=== PATIENT | male | born 1935 | race Caucasian/White ===

== ENCOUNTER → 2016-11-05 | Outpatient (CLI) | payer OTHER, MEDICARE ==
[~2016-11-05] MED LIST: ADULT LOW DOSE81 MG; LIPITOR; ZIAC
--- NOTE | ~2016-11-05 | CNG ---
[facility] [place] [address] CYTO-NONGYN REPORT PROCEDURE Name: JENN GARSIA Room #: REG Owen MGerardo.#: [id number] Admission: 11/05/16 Date of : 33 Discharge: Report #: [id number] Path Case #: [id number] CYTOPATHOLOGY REPORT COLLECTION DATE: 11/05/2016 RECEIVED DATE: 11/05/2016 SUBMITTING PHYS: Dr. Jamar Mendoza OTHER PHYS: Dr. Yuan Grimes CLINICAL HISTORY: Effusion. SPECIMEN(S) RECEIVED: A.Pleural fluid * * * * * * * * * * * * FINAL DIAGNOSIS: A. Pleural fluid: - No malignant cells identified. Paucicellular specimen consisting of rare mixed inflammatory cells and proteinaceous debris. PATHOLOGIST: Alicia Nolen M.D. REPORT ELECTRONICALLY SIGNED BY: Alicia Nolen M.D. DATE/TIME: 11/06/2016 15:01 * * * * * * * * * * * * GROSS PATHOLOGY: A. Pleural fluid: The specimen is submitted unfixed, labeled "Jenn Garsia". Received by the Cytology Department is five mL of yellow fluid. One ThinPrep slide was prepared. There was insufficient material to prepare a cell block. (clt 11.05.2016) APPOINTMENT SPECIALIST(S): MARIELA Desai(ASCP) INITIAL CPT CODE(S): A; 71718 Professional services performed by [facility] at [facility] [address], [place] [address] Technical services performed by [facility] at [address] [place] [address]., [address], [place] [address]. [facility] [address] [place] [address], [address] [place] [address] PHONE: [phone] [facility] [address] [address] CYTO-NONGYN REPORT PROCEDURE Name: JENN GARSIA Room #: REG CLOwen Zaidi.#: [id number] Admission: 11/05/16 Date of : 33 Discharge: Report #: [id number] Path Case #: [id number] DIRECTOR: Gagandeep Carrillo M.D. * * * END OF REPORT * * *
[2016-11-05 10:40] LABS: PROTIME 10.7 Seconds (9.3-11.4)
[2016-11-06 09:49] LABS: TOTAL VOLUME 20
[2016-11-11 11:07] LABS: COLOR YELLOW
[2016-11-11 11:08] LABS: BF RBC 1000; CLARITY CLEAR
[2016-11-11 11:11] LABS: BF LINING CELLS 4; BF NEUTROPHILS 3; BF NUCLEATED CELLS 388
[2016-11-11 11:12] LABS: BODY FLUID ALBUMIN 2.4; BODY FLUID PROTEIN 4.4
[2016-11-11 11:13] LABS: BODY FLUID AMYLASE 37; BODY FLUID GLUCOSE 87; BODY FLUID LDH 186
== END ==
LOC: ULTRA 09:19
PROVIDERS: Internal Medicine Pulmonary Disease
DX: J90 Pleural effusion, not elsewhere classified (principal)

== ENCOUNTER → 2016-11-08 | Outpatient (CLI) | payer OTHER, MEDICARE ==
--- NOTE | ~2016-11-08 | CNG ---
[facility] [place] [address] CYTO-NONGYN REPORT PROCEDURE Name: JENN GARSIA Bety Room #: REG [facility] Dejuan.#: [id number] Admission: 11/08/16 Date of : 33 Discharge: Report #: [id number] Path Case #: [id number] CYTOPATHOLOGY REPORT COLLECTION DATE: 11/08/2016 RECEIVED DATE: 11/08/2016 SUBMITTING PHYS: Dr. Jamar Mendoza OTHER PHYS: CLINICAL HISTORY: Decubitus views/US/Thoracentesis SPECIMEN(S) RECEIVED: A.Pleural fluid, right * * * * * * * * * * * * FINAL DIAGNOSIS: A. Right Pleural fluid: - No malignant epithelial cells identified. Scattered mesothelial cells and inflammatory cells identified. PATHOLOGIST: Toyin Juares M.D. REPORT ELECTRONICALLY SIGNED BY: Toyin Juares M.D. DATE/TIME: 11/11/2016 14:41 * * * * * * * * * * * * GROSS PATHOLOGY: A. Pleural fluid, right: The specimen is submitted unfixed, labeled "Jenn Garsia". Received by the Cytology Department is 20 mL of yellow fluid. One ThinPrep slide and a cell block were prepared. (kg 11/08/16) CALCINER FEEDER(S): [facility] Pinzon[facility] INITIAL CPT CODE(S): A; 97184, 69107 Professional services performed by [facility] at [facility] [address] [facility] , [place] [address] Technical services performed by [facility] at [address] [place] [address]., [address], [place] [address]. [facility] [address] [place] [address], [address] [place] [address] PHONE: [phone] [facility] [address] [place] [address] CYTO-NONGYN REPORT PROCEDURE Name: JENN GARSIA Room #: REG CLOwen Zaidi.#: [id number] Admission: 11/08/16 Date of : 33 Discharge: Report #: [id number] Path Case #: [id number] DIRECTOR: Gagandeep Carrillo M.D. * * * END OF REPORT * * *
[2016-11-08 14:42] LABS: TOTAL VOLUME 60
[2016-11-10 05:35] LABS: BODY FLUID ALBUMIN 2.5 g/dL (()); BODY FLUID AMYLASE 34 U/L (()); BODY FLUID GLUCOSE 81 mg/dL (()); BODY FLUID LDH 237 IU/L (()); BODY FLUID PROTEIN 4.4 g/dL (())
[2016-11-10 23:05] LABS: BF LINING CELLS 0 % (Not Estab.); BF MACROPHAGE 27 % (Not Estab.); BF NEUTROPHILS 0 % (0-24); BF NUCLEATED CELLS 568 /mm3 (0-499); BF RBC 3000 /uL (Not Estab.); CLARITY CLEAR (Clear); COLOR STRAW (())
== END | disposition home or self-care (01) ==
LOC: RAD 06:00
PROVIDERS: Internal Medicine Pulmonary Disease
DX: J90 Pleural effusion, not elsewhere classified (principal)

== ENCOUNTER → 2016-11-18 | Outpatient (CLI) | payer OTHER, MEDICARE | LOC: RAD 08:05 | DX: J90 Pleural effusion, not elsewhere classified (principal) ==

== ENCOUNTER → 2016-11-25 | Outpatient (CLI) | payer OTHER, MEDICARE ==
--- NOTE | ~2016-11-25 | CNG ---
[facility] [place] [address] CYTO-NONGYN REPORT PROCEDURE Name: JENN GARSIA Room #: REG BOY Zaidi.#: [id number] Admission: 11/25/16 Date of : 33 Discharge: Report #: [id number] Path Case #: [id number] CYTOPATHOLOGY REPORT COLLECTION DATE: 11/25/2016 RECEIVED DATE: 11/25/2016 SUBMITTING PHYS: Dr. Jamar Mendoza OTHER PHYS: Dr. Yuan Grimes CLINICAL HISTORY: Pleural effusion. SPECIMEN(S) RECEIVED: A.Pleural fluid, Left * * * * * * * * * * * * FINAL DIAGNOSIS: A. Left Pleural fluid: NEGATIVE FOR MALIGNANT EPITHELIAL CELLS. Scattered lymphocytes, rare mesothelial cells, and abundant proteinaceous debris. PATHOLOGIST: Toyin Juares M.D. REPORT ELECTRONICALLY SIGNED BY: Toyin Juares M.D. DATE/TIME: 11/26/2016 15:25 * * * * * * * * * * * * GROSS PATHOLOGY: A. Pleural fluid, Left: The specimen is submitted unfixed, labeled "ShannonJenn bañuelos". Received by the Cytology Department is 25 mL of earnest fluid. One ThinPrep slide and a cell block were prepared. (clt 11.25.2016) TRUCK ASSEMBLER(S): MARIELA Haynes([facility] INITIAL CPT CODE(S): A; 55899, 33389 Professional services performed by [facility] at [facility] , [place] [address] Technical services performed by [facility] at [address] [place] [address]., [address], [place] [address]. [facility] [address] [place] [address], [facility] [address] [place] [address] PHONE: [phone] [facility] [address] [place] [address] CYTO-NONGYN REPORT PROCEDURE Name: JENN GARSIA Room #: REG BOY Zaidi.#: [id number] Admission: 11/25/16 Date of : 33 Discharge: Report #: [id number] Path Case #: [id number] DIRECTOR: Gagandeep Carrillo M.D. * * * END OF REPORT * * *
[2016-11-25 07:31] LABS: HEMATOCRIT 42.7 % (42.0-52.0); HEMOGLOBIN 14.2 gm/dL (14.0-18.0); MCH 29.4 pg (26.0-34.0); MCHC 33.3 % (28.0-37.0); MCV 88.1 fL (80.0-100.0); RBC 4.85 mil/uL (4.50-6.00); RDW 16.1 % (10.5-14.5)
[2016-11-25 07:38] LABS: CALCIUM 8.6 mg/dL (8.5-10.1); CREATININE 1.1 mg/dL (0.6-1.3)
[2016-11-25 07:42] LABS: PROTIME 10.6 Seconds (9.3-11.4)
[2016-11-25 07:44] LABS: ALBUMIN 3.4 g/dL (3.4-5.0); TOTAL BILIRUBIN 0.6 mg/dL (<0.1-1.0)
[2016-11-25 09:45] LABS: TOTAL VOLUME 60
[2016-11-25 12:07] LABS: BODY FLUID ALBUMIN 2.4 g/dL (()); BODY FLUID AMYLASE 43 U/L (()); BODY FLUID GLUCOSE 83 mg/dL (()); BODY FLUID LDH 183 IU/L (()); BODY FLUID PROTEIN 4.6 g/dL (())
[2016-11-25 12:07] LABS: BF MACROPHAGE 5 % (Not Estab.); BF NEUTROPHILS 1 % (0-24); BF NUCLEATED CELLS 1072 /mm3 (0-499); BF RBC 4000 /uL (Not Estab.); CLARITY CLOUDY (Clear); COLOR YL (())
== END | disposition home or self-care (01) ==
LOC: ULTRA 06:59
PROVIDERS: Internal Medicine Pulmonary Disease
DX: J90 Pleural effusion, not elsewhere classified (principal)

== ENCOUNTER → 2020-04-07 | Outpatient (CLI) | payer OTHER, MEDICARE | LOC: SJCVCIMAG 08:54 | PROVIDERS: ATTEND Internal Medicine Cardiovascular Disease | DX: I08.3 Combined rheumatic disorders of mitral, aortic and tricuspid valves (principal); I11.9 Hypertensive heart disease without heart failure; R94.31 Abnormal electrocardiogram [ECG] [EKG]; I44.7 Left bundle-branch block, unspecified; I44.39 Other atrioventricular block; I48.92 Unspecified atrial flutter; I87.2 Venous insufficiency (chronic) (peripheral); D68.59 Other primary thrombophilia; E78.00 Pure hypercholesterolemia, unspecified; E55.9 Vitamin D deficiency, unspecified; Z79.899 Other long term (current) drug therapy; Z87.891 Personal history of nicotine dependence ==

== ENCOUNTER → 2020-05-31 | Outpatient (CLI) | payer OTHER, MEDICARE | LOC: SJCVC 11:34 | PROVIDERS: ATTEND Internal Medicine Cardiovascular Disease | DX: R94.31 Abnormal electrocardiogram [ECG] [EKG] (principal); I48.92 Unspecified atrial flutter; I25.10 Atherosclerotic heart disease of native coronary artery without angina pectoris; I35.1 Nonrheumatic aortic (valve) insufficiency; I10 Essential (primary) hypertension; I77.810 Thoracic aortic ectasia; I87.2 Venous insufficiency (chronic) (peripheral); D68.59 Other primary thrombophilia; E78.5 Hyperlipidemia, unspecified; Z79.899 Other long term (current) drug therapy; Z87.891 Personal history of nicotine dependence ==

== ENCOUNTER → 2020-06-07 | Outpatient (CLI) | payer OTHER, MEDICARE | LOC: SJCVC 13:16 | PROVIDERS: ATTEND Internal Medicine Cardiovascular Disease | DX: R94.31 Abnormal electrocardiogram [ECG] [EKG] (principal); I45.4 Nonspecific intraventricular block; I44.39 Other atrioventricular block; I48.92 Unspecified atrial flutter; I35.1 Nonrheumatic aortic (valve) insufficiency; I10 Essential (primary) hypertension; I77.810 Thoracic aortic ectasia; I87.2 Venous insufficiency (chronic) (peripheral); D68.59 Other primary thrombophilia; Z79.899 Other long term (current) drug therapy; Z87.891 Personal history of nicotine dependence ==

== ENCOUNTER → 2020-06-14 | Outpatient (CLI) | payer OTHER, MEDICARE | LOC: SJCVC 14:28 | PROVIDERS: ATTEND Internal Medicine Cardiovascular Disease | DX: I44.0 Atrioventricular block, first degree (principal); I45.4 Nonspecific intraventricular block; R00.1 Bradycardia, unspecified; R94.31 Abnormal electrocardiogram [ECG] [EKG]; I48.92 Unspecified atrial flutter; I35.1 Nonrheumatic aortic (valve) insufficiency; I87.2 Venous insufficiency (chronic) (peripheral); I10 Essential (primary) hypertension; I77.810 Thoracic aortic ectasia; D68.59 Other primary thrombophilia; E78.5 Hyperlipidemia, unspecified; Z79.899 Other long term (current) drug therapy; Z87.891 Personal history of nicotine dependence ==

== ENCOUNTER → 2020-08-09 | Outpatient (CLI) | payer OTHER, MEDICARE | LOC: SJCVC 13:03 | PROVIDERS: ATTEND Internal Medicine Cardiovascular Disease | DX: I45.4 Nonspecific intraventricular block (principal); R94.31 Abnormal electrocardiogram [ECG] [EKG]; I48.92 Unspecified atrial flutter; I10 Essential (primary) hypertension; I35.1 Nonrheumatic aortic (valve) insufficiency; I77.810 Thoracic aortic ectasia; I87.2 Venous insufficiency (chronic) (peripheral); D68.59 Other primary thrombophilia ==

== ENCOUNTER → 2020-09-25 | Outpatient (CLI) | payer OTHER, MEDICARE | LOC: SJCVC 13:40 | PROVIDERS: ATTEND Internal Medicine Cardiovascular Disease | DX: R94.31 Abnormal electrocardiogram [ECG] [EKG] (principal); I10 Essential (primary) hypertension; I48.92 Unspecified atrial flutter; E78.00 Pure hypercholesterolemia, unspecified ==

== ENCOUNTER → 2020-12-06 | Outpatient (CLI) | payer OTHER, MEDICARE | LOC: SJCVC 14:16 | PROVIDERS: ATTEND Internal Medicine Cardiovascular Disease | DX: R94.31 Abnormal electrocardiogram [ECG] [EKG] (principal); I48.92 Unspecified atrial flutter; I10 Essential (primary) hypertension; E78.00 Pure hypercholesterolemia, unspecified; I44.7 Left bundle-branch block, unspecified; I38 Endocarditis, valve unspecified; E78.5 Hyperlipidemia, unspecified; N40.0 Benign prostatic hyperplasia without lower urinary tract symptoms; E55.9 Vitamin D deficiency, unspecified; Z88.0 Allergy status to penicillin; Z79.899 Other long term (current) drug therapy; Z87.891 Personal history of nicotine dependence ==

== ENCOUNTER → 2021-01-31 | Outpatient (CLI) | payer OTHER, MEDICARE | LOC: SJCVC 09:29 | PROVIDERS: ATTEND Internal Medicine Cardiovascular Disease | DX: J90 Pleural effusion, not elsewhere classified (principal); I10 Essential (primary) hypertension; I77.810 Thoracic aortic ectasia; I48.92 Unspecified atrial flutter ==